=== PATIENT | female | born 1945 | race Caucasian/White ===

== ENCOUNTER 2016-09-29 08:13 | Outpatient (CLI) | payer MEDICARE ==
[~2016-09-29] VITALS: Ht 180.3 cm; Wt 72.7 kg
[~2016-09-29 08:13] MED LIST: ADVIL200 MG PO; ALENDRONATE SOD70 MG PO; AMBIEN10 MG PO; BENADRYL25 MG PO; DYAZIDE 37.5/251 CAP PO; GINKO BILOBA; HYDROCODONE-APA1 TAB PO; LIPITOR80 MG PO; NORCO 7.5/325 T1 TA1 PO; OMEPRAZOLE DR 20 MG PO; PHENERGAN25 M1 PO; VITAMIN D31000 UNIT PO; ZOFRAN ODT4 MG/UDTAB PO
[2016-09-29] MEDS ORDERED: DECADRON4 MG PO (08:57)
[2016-09-29] MEDS ORDERED: ALDACTONE50 MG PO (08:58)
[2016-09-29] MEDS ORDERED: XARELTO20 MG PO (08:59)
[2016-09-29] MEDS ORDERED: FUROSEMIDE20 MG PO (08:59)
[2016-09-29 09:16] VITALS: BP 104/66; Ht 180.3 cm; Wt 72.7 kg
[2016-09-29 10:04] LABS: BASOPHILS 0 % (0-2); EOSINOPHILS 0 % (0-7); HEMATOCRIT 32.4 % (36.0-48.0); HEMOGLOBIN 11.1 g/dL (12-16); IMMATURE GRANULOCYTES 0.2 % (0-5); MCH 28.7 pg (26.0-34.0); MCHC 34.3 g/dL (31.0-37.0); MCV 83.7 fL (80.0-100.0); MEAN PLATELET VOLUME 11.3 fL (7.4-10.4); MONOCYTES 14.2 % (2-11); NEUTROPHILS 78.6 % (40-80); PLATELET COUNT 266 10x3/uL (130-400); RBC 3.87 10x6/uL (4.00-5.40); RDW 19.6 % (11.5-14.5); WBC 8.3 10x3/uL (4.8-10.8)
[2016-09-29 10:12] LABS: ANION GAP 13.2 mmol/L (8-16); APTT 36.7 SECONDS (22.8-39.4); CALCIUM 8.1 mg/dL (8.5-10.1); CARBON DIOXIDE 24.8 mmol/L (21.0-32.0); CREATININE - SERUM 0.9 mg/dL (0.6-1.3); INR 1.35 (0.85-1.17); PROTIME 16.6 SECONDS (11.6-15.0)
--- NOTE | 2016-09-29 14:13 | NUR ---
PORT TO LEFT CHEST DC'D. NO REDNESS OR SWELLING NOTED TO SITE. DISCHARGE INSTRUCTIONS REVIEWED, VERBALIZED UNDERSTANDING. VSS. SEE PAPER CHART FOR V/S. DC'D VIA WC WITH FAMILY AND STAFF
== END 2016-09-29 14:15 | disposition home or self-care (01) ==
LOC: D.OPS 08:13 → D.CT 08:13 → D.RAD 11:00 → D.CT 11:00 → D.OPS 14:15
PROVIDERS: General Practice
DX: C50.912 Malignant neoplasm of unspecified site of left female breast (principal); R18.8 Other ascites; Z01.812 Encounter for preprocedural laboratory examination